=== PATIENT | male | born 1945 | race Caucasian/White ===

== ENCOUNTER 2016-08-05 05:50 | Inpatient (IN) | payer OTHER ==
[2016-08-05] MEDS ORDERED: LIDOCAINE 1% 5 ML SDV ONE (06:00)
[2016-08-05] MEDS ORDERED: ceFAZolin 2 GM/DEXTROSE 100 ML IV ONE (06:00)
[2016-08-05] MEDS ORDERED: CHLORHEXIDINE GLUC HIBICLENS 118 ML BTL TP ONE (06:00)
[2016-08-05] MEDS ORDERED: THROMBIN (RECOMBINANT) 5,000 UNIT VIAL TP ONE (06:27)
[2016-08-05] MEDS ORDERED: BUPIVACAINE/EPI 0.25% 30 ML SDV ONE (06:28)
[2016-08-05] MEDS ORDERED: BACITRACIN 50,000 UNITS/10 ML SYR IRR ONE ×2 (06:28→09:28)
[2016-08-05] MEDS ORDERED: MIDAZOLAM 2 MG/2 ML VIAL ONE (07:12)
[2016-08-05] MEDS ORDERED: REMIFENTANIL HCL 1 MG VIAL ONE ×3 (07:20→07:21)
[2016-08-05] MEDS ORDERED: fentaNYL 100 MCG/2 ML INJ ONE ×3 (07:21→13:34)
[2016-08-05] MEDS ORDERED: PROPOFOL/EMULSION 500 MG/50 ML BOTTLE IV ONE ×2 (07:21→10:20)
[2016-08-05] MEDS ORDERED: LIDOCAINE 2% 5 ML SDV ONE (07:22)
[2016-08-05] MEDS ORDERED: ROCURONIUM 50 MG/5 ML VIAL ONE ×2 (07:23→07:51)
[2016-08-05] MEDS ORDERED: AMINOCAPROIC ACID 5 GM/20 ML VIAL ONE (07:24)
[2016-08-05] MEDS ORDERED: PROPOFOL 200 MG/20 ML VIAL ONE (07:27)
[2016-08-05] MEDS ORDERED: DEXAMETHASONE 4 MG/ML VIAL ONE (07:51)
[2016-08-05] MEDS ORDERED: epHEDrine SULFATE 10 MG/ML SYR ONE (08:42)
[2016-08-05] MEDS ORDERED: PHENYLEPHRINE HCL 100 MCG/ML SYR ONE (08:42)
[2016-08-05] MEDS ORDERED: PHENYLEPHRINE 10 MG/ML SDV ONE ×2 (08:51)
[2016-08-05] MEDS ORDERED: HYDROmorphONE/DILAUDID 2 MG/ML INJ ONE (10:20)
[2016-08-05] MEDS ORDERED: SUGAMMADEX SODIUM 200 MG/2 ML VIAL IVP ONE (11:10)
[2016-08-05] MEDS ORDERED: ONDANSETRON DISINTEGRATING 4 MG TAB PO PRN (12:14)
[2016-08-05] MEDS ORDERED: POLYETHYLENE GLYCOL 3350 17 GM PKT PO PRN (12:14)
[2016-08-05] MEDS ORDERED: ONDANSETRON 4 MG/2 ML VIAL IVP PRN (12:14)
[2016-08-05] MEDS ORDERED: LACTULOSE 20 GM/30 ML UDCUP PO PRN (12:14)
[2016-08-05] MEDS ORDERED: MAGNESIUM HYDROXIDE 30 ML UDCUP PO PRN (12:14)
[2016-08-05] MEDS ORDERED: diphenhydrAMINE 25 MG CAP PO PRN (12:14)
[2016-08-05] MEDS ORDERED: ACETAMINOPHEN 325 MG TAB PO PRN (12:14)
[2016-08-05] MEDS ORDERED: DIAZEPAM 10 MG/2 ML SYR IVP PRN (12:14)
[2016-08-05] MEDS ORDERED: BISACODYL 10 MG SUPP PR PRN (12:14)
[2016-08-05] MEDS ORDERED: DIAZEPAM 5 MG TAB PO PRN (12:14)
[2016-08-05] MEDS ORDERED: HYDROmorphONE/DILAUDID 1 MG/ML SYR ONE (12:25)
[2016-08-05] MEDS ORDERED: DIAZEPAM 10 MG/2 ML SYR ONE (12:25)
--- NOTE | 2016-08-05 12:26 | POSTOPPROG ---
Post Op Note Date of Operation: 08/05/16 Surgeon: Nirali Lozoya Wet Machine Tender: Aminta Steven PA-C Anesthesia: GET(General Endotracheal) Pre-op Diagnosis: Lumbar stenosis Post-op Diagnosis: same Procedure: removal of hardware and extension of fusion L2/3 TLIF Inf/Abcess present in the surg proc area at time of surgery?: No Depth: Organ Space EBL: 250 Drains: Todd Ansari SOAP Progress Note Assessment/Plan: Assessment: Plan: S: patient waking up in PACU. Stable. Has expected back pain. O: NAD, VSS No droop PERRL BUE/BLE 5/5= Sensation intact to lt touch incision c/d/i- dressed Barry X1- to full suctions A: 70 yo male s/p removal hardware L3/4 and extension of fusion with L2/3 TLIF Plan: -Admit to med surg -Optimize pain management -Advance diet as tolerated -Barry X-1 -Postop x-rays pending in am -Brace when out of bed -DVT: TEDs, SCDs, Lovenox ok 24 hrs postop -Call neurosurg with any questions 08/05/16 12:23
--- NOTE | 2016-08-05 13:40 | GOP ---
DATE OF OPERATION: 08/05/2016 SURGEON: Bethany Lozoya MD MOVIE CRITIC: Aminta Steven, OUMOU PREOPERATIVE DIAGNOSIS: Very severe spinal stenosis at L2-3 above a prior L3 to S1 fusion, adjacent segment disease, axial low back pain, degenerative disk disease at L2-3. POSTOPERATIVE DIAGNOSIS: Very severe spinal stenosis at L2-3 above a prior L3 to S1 fusion, adjacen t segment disease, axial low back pain, degenerative disk disease at L2-3. PROCEDURE PERFORMED: Posterolateral and intervertebral arthrodesis with bilateral decompressions at L2-3 (79277), removal of posterior segmental instrumentation L3-L4 (31317), posterolateral and inte rvertebral arthrodesis, in this case, across a single interspace at L2-3 (23332), same incision bone graft harvest, microscope, fluoroscopy, spinal stereotaxy, placement of expandable non anchored int ervertebral device at L2-3 (81654). FINDINGS: ESTIMATED BLOOD LOSS: 300 cc INDICATIONS: The patient is a 70-year-old with a prior history of an L3 to S1 fusion with a good cl inical result who developed incapacitating, severe axial low back pain. The MRI demonstrated terrib le degenerative disease adjacent to the fusion with critical spinal stenosis. 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 He desired to have surgery. The risk of further adjacent segment disease, including the need for surgery at L1-2, was discussed; he knew this was a risk. The risk of screw and hardware malposition and malfunction was discussed, vascular injury, nerve injury, spinal fluid leak, and the possible need for additional re vision surgery, as well as the chance that he may fail to improve with the surgery. He accepted the se risks and wanted to proceed. DESCRIPTION OF PROCEDURE: The patient was taken to the operating room, placed in a supine position. General anesthesia was begun. He was flipped prone onto the Todd table. Care was taken to pad all points of contact. His right shoulder was postoperative, and we placed that arm tucked at the right side. The left arm, we put up above the head, as we normally do, although we did not stretch it all the way above the head; it was placed in a more physiologic position. We monitored SSEPs thr oughout the surgery. His back was sterilely prepped and draped in the usual fashion. The O-arm was introduced sterilely onto the field. Localizing x-rays were taken. We opened the prior incision, exposed the hardware at L3 and L4, and exposed the transverse process of L2. We denuded and removed the hypertrophic adjacent segment facet joint at L2-3. We then took several carbide drill bits and cut through the tiffany just at the lower border of the L3 tulip, and we then removed both screws. We performed an O-arm spin, and using frameless Stealth stereotaxy, we placed pedicle screws bilaterall y at L2 and performed another O-arm spin, and they were in excellent position. They all stimulated greater than 30 milliamps. We removed the hypertrophic bone around the prior tiffany above the L4 screw s. We had removed the L4 set screws as well. We then took a connecting in-line connector, and ensu red that it fit over both of the rostral portions of the old tiffany. We connected a new tiffany to the con nector and then connected this to the old tiffany on each side. We did not tighten any of these screws initially. We reduced the tiffany into the tulip at L2, and then distracted on each side at L2, working back and forth, increasing our distraction. We got good elevation of disk heights at L2-3 using th is technique, and we locked this in place. We then placed additional cap screws and the L4 screws, followed by appropriately torquing the connector set screws. We then removed all the soft tissue of the bone at L2-3, brought in the operating microscope, removed the inferior L2 spinous process, the rostral L3 spinous process. Under the scope, we opened the ligamentum flavum and performed a decom pression of the central spinal canal, and removed the rostral portion of the L3 lamina. An excellen t decompression was obtained. We swept the thecal sac medially from the left-hand side, and then re moved the disk and the cartilaginous endplates. There was really no additional disk material left i n the L2-3 disk, and this made this relatively straightforward. We placed some bone autograft, foll owed by BMP sponge, followed by the expandable Elevate cage at L2-3, and we expanded under fluorosco pic guidance. After it was fully expanded, we then compressed posteriorly at the L2 screws and got several millimeters of compression, increasing the segmental lordosis at this level. We decorticate d all remaining visible bone posterolaterally at L2-3 to conclude our arthrodesis and placed bony au tograft posterolaterally bilaterally as well as some BMP. We did not use all of the BMP dosage. We placed cap screws on all of the screws that remained, tightened them according to company specifica tion. We placed a subfascial drain, and then closed the incision in multiple layers using Vicryl palmer tures. Running PDS was placed in the skin itself. DICTATION ENDS HERE COMPLICATIONS: None. INSTRUMENTATION USED: [id number] Solera 475 system with connecting rods and a 7 x 28 mm Elevate cage at L2-3. We used 1.5 mg of BMP. COMPLICATIONS: None. /[id number]/MODL
[2016-08-05] MEDS: HYDROCODONE/APAP 10/325 TAB PO PRN (14:11)
[2016-08-05] MEDS: NS W/ 20 KCl/L 1,000 ML IV SCH (14:14)
[2016-08-05] MEDS: METHOCARBAMOL 750 MG TAB PO PRN (14:53)
[2016-08-05] MEDS: oxyCODONE IR 5 MG TAB PO PRN (15:11)
[2016-08-05] MEDS: CYCLOBENZAPRINE 10 MG TAB PO PRN (16:38)
[2016-08-05] MEDS ORDERED: HYDROmorphONE/DILAUDID 6 MG/30 ML PCA IV ONE (17:43)
[2016-08-05] MEDS ORDERED: NALOXONE HCL 0.4 MG/ML INJ IVP PRN (17:43)
[2016-08-05] MEDS ORDERED: HYDROmorphONE/DILAUDID 6 MG/30 ML PCA IV PRN (17:43)
[2016-08-05] MEDS ORDERED: SIMVASTATIN 20 MG PO SCH (18:00)
[2016-08-05] MEDS ORDERED: HYDROmorphONE/DILAUDID 1 MG/ML SYR IVP ONE (18:30)
[2016-08-05] MEDS: ATORVASTATIN CALCIUM 10 MG TAB PO SCH ×2 (18:31→18:36)
[2016-08-05] MEDS ORDERED: FAMOTIDINE 20 MG/NACL 50 ML IV SCH (21:00)
[2016-08-05] MEDS: TAMSULOSIN HCL 0.4 MG CAP PO SCH (22:19)
[2016-08-05] MEDS: SENNOSIDES/DOCUSATE SODIUM TAB PO SCH (22:19)
[2016-08-05] MEDS: FAMOTIDINE 20 MG TAB PO SCH (22:19)
[2016-08-06] MEDS: NS W/ 20 KCl/L 1,000 ML IV SCH (00:18)
[2016-08-06] MEDS ORDERED: NON-FORMULARY NEW DRUG (Zolpidem Tartrate [Ambien 10 Mg] 10 MG) PO PRN (07:57)
[2016-08-06] MEDS ORDERED: Zaleplon [Sonata] 10 MG PO PRN (07:57)
[2016-08-06] MEDS ORDERED: TESTOSTERONE IM 100 MG/ML SYRINGE IM SCH (08:00)
[2016-08-06] MEDS ORDERED: ZOLPIDEM TARTRATE 5 MG TAB PO PRN (08:00)
[2016-08-06] MEDS: SENNOSIDES/DOCUSATE SODIUM TAB PO SCH ×2 (08:19→21:14)
[2016-08-06] MEDS: METHOCARBAMOL 750 MG TAB PO PRN ×2 (08:19→21:14)
[2016-08-06] MEDS: oxyCODONE IR 5 MG TAB PO PRN ×3 (08:19→17:30)
[2016-08-06] MEDS: FAMOTIDINE 20 MG TAB PO SCH ×2 (08:19→21:14)
--- NOTE | 2016-08-06 08:27 | NEUSURGPN ---
Assessment/Plan: A: 70 yo male s/p removal hardware L3/4 and extension of fusion with L2/3 TLIF POD#1 Plan: -Admit to med surg -Optimize pain management, transition from BILL[employer] to oral oxycodone, robaxin -Advance diet as tolerated -Barry X-1 - remove today -Postop x-rays pending i -Brace when out of bed -DVT: TEDs, SCDs, Lovenox ok 24 hrs postop -Call neurosurg with any questions -Updated Dr Lozoya Subjective: Pt resting in bed, states he wants to get back to oral medications/home dose Objective: AAOx3 NAD VSS MAEx4 Motor 5/5 BLE Incision dressed cdi +LT Urinary Catheter in Place: No Catheter Insertion Date: 08/05/16 - Physician Discussed Patient with : [facility] Physical Exam - Vitals, I&O, Labs I and O 08/05/16 08/06/16 08/07/16 05:59 05:59 05:59 Intake Total 5700 550 Output Total 3335 Balance 2365 550 Weight 65.771 kg Intake: Oral (ml) 1150 IV Intake (ml) 4500 IV Infused (ml) 50 550 NS W/ 20 KCl/L 1,000 ml @ 500 75 mls/hr IV CONT PORSHA Rx #:[id number] ceFAZolin 1 GM/DEXTROSE 50 50 50 ml @ 200 mls/hr IV Q8H PORSHA Rx#:[id number] Output: Urine (ml) 2825 Catheter 1875 Urinal 950 Estimated Blood Loss (ml) 280 Wound Drainage (ml) 230 Left Back Todd Ansari 230 Other: Intake Quantity No Sufficient Number of Voids Catheter 2 Urinal 1 Post Void Residual Scan Volume (ml) Catheter 213 Vital Signs Temp Pulse Resp BP Pulse Ox 36.9 C 65 18 160/88 H 95 08/06/16 08:00 08/06/16 08:00 08/06/16 08:00 08/06/16 08:00 08/06/16 08:00 ICD10 Worksheet Patient Problems: Problems Problem Status Onset Lumbar degenerative disc disease Acute - ICD10 Problem Qualifiers (1) Lumbar degenerative disc disease
[2016-08-06] MEDS: RAMIPRIL 5 MG CAP PO SCH (10:04)
[2016-08-06] MEDS: ENOXAPARIN 40 MG/0.4 ML SYR SC SCH (13:07)
[2016-08-06] MEDS: CYCLOBENZAPRINE 10 MG TAB PO PRN (13:15)
[2016-08-06] MEDS: ATORVASTATIN CALCIUM 10 MG TAB PO SCH (17:30)
[2016-08-06] MEDS ORDERED: traZODone 50 MG TAB PO SCH (21:00)
[2016-08-06] MEDS: HYDROCODONE/APAP 10/325 TAB PO PRN (21:14)
[2016-08-06] MEDS: TAMSULOSIN HCL 0.4 MG CAP PO SCH (21:14)
[2016-08-06 23:10] VITALS: RESP 14
[2016-08-07] MEDS: METHOCARBAMOL 750 MG TAB PO PRN (05:54)
[2016-08-07] MEDS: HYDROCODONE/APAP 10/325 TAB PO PRN (05:54)
[2016-08-07 07:37] VITALS: BP 125/89; PULSE 93; TEMP 98.5; O2SAT 94
[2016-08-07] MEDS: FAMOTIDINE 20 MG TAB PO SCH (08:00)
[2016-08-07] MEDS: RAMIPRIL 5 MG CAP PO SCH (08:00)
[2016-08-07] MEDS: SENNOSIDES/DOCUSATE SODIUM TAB PO SCH (08:00)
[2016-08-07] MEDS: ENOXAPARIN 40 MG/0.4 ML SYR SC SCH (08:01)
--- NOTE | 2016-08-07 09:24 | SOAPPROG ---
SOAP Progress Note Assessment/Plan: Assessment: 70 yo M POD #2 L2/3 TLIF tied into L3-S1 fusion Plan: stable x-rays look great dc home today please call with neuro changes discussed with Dr rice 08/07/16 09:22 Subjective: back pain improving, no leg pain. Objective: Vital Signs Temp Pulse Resp BP Pulse Ox 36.9 C 93 14 125/89 H 94 08/07/16 07:35 08/07/16 07:35 08/07/16 07:35 08/07/16 08:00 08/07/16 07:35 08/06/16 08/07/16 08/08/16 05:59 05:59 05:59 Intake Total 5700 800 Output Total 3335 445 Balance 2365 355 AAOX4, +FC PERRL, EOMI, no facial droop 5/5 + light touch C/D/I ICD10 Worksheet Patient Problems: Problems Problem Status Onset Lumbar degenerative disc disease Acute
[2016-08-07] MEDS: oxyCODONE IR 5 MG TAB PO PRN (09:50)
[2016-08-07] MEDS: CYCLOBENZAPRINE 10 MG TAB PO PRN (09:50)
== END 2016-08-07 11:39 | disposition home or self-care (01) | DRG 460 ==
LOC: F3N 05:50
PROVIDERS: ADMIT Neurological Surgery; ATTEND Neurological Surgery
PROC: 8E0WXBZ Computer Assisted Procedure of Trunk Region (ICD-10-PCS; principal; 2016-08-05 07:30)
PROC: 0QP004Z Removal of Internal Fixation Device from Lumbar Vertebra, Open Approach (ICD-10-PCS; principal; 2016-08-05 07:30)
PROC: 00NY0ZZ Release Lumbar Spinal Cord, Open Approach (ICD-10-PCS; principal; 2016-08-05 07:30)
PROC: 3E0V0GB Introduction of Recombinant Bone Morphogenetic Protein into Bones, Open Approach (ICD-10-PCS; principal; 2016-08-05 07:30)
PROC: 4A10X4G Monitoring of Central Nervous Electrical Activity, Intraoperative, External Approach (ICD-10-PCS; principal; 2016-08-05 07:30)
PROC: 0SG00A1 (ICD-10-PCS; principal; 2016-08-05 07:30)
DX: M51.36 Other intervertebral disc degeneration, lumbar region (principal); M48.06 Spinal stenosis, lumbar region; Z98.1 Arthrodesis status; E78.5 Hyperlipidemia, unspecified; I10 Essential (primary) hypertension
CPT/HCPCS: 97161-GP; 97165-GO; C1713; G8978-GP-CI; G8979-GP-CI; G8980-GP-CI; G8987-GO-CI; G8988-GO-CI; G8989-GO-CI; J0690; J1071; J1100; J1170; J1650; J2250; J2370; J2405; J2704; J3010

== ENCOUNTER → 2016-10-04 | Outpatient (CLI) | payer OTHER | LOC: FIMAGING 08:39 | PROVIDERS: ATTEND Neurological Surgery | DX: M54.16 Radiculopathy, lumbar region (principal); Z98.1 Arthrodesis status ==

== ENCOUNTER → 2016-12-22 | Day surgery (SDC) | payer OTHER | END | disposition home or self-care (01) | LOC: FIMAGING 12:37 | PROVIDERS: ATTEND Radiology Diagnostic Radiology | PROC: 02HV33Z Insertion of Infusion Device into Superior Vena Cava, Percutaneous Approach (ICD-10-PCS; principal; 2016-12-22) | DX: M00.9 Pyogenic arthritis, unspecified (principal) | CPT/HCPCS: 36569; 77001; C1751 ==

== ENCOUNTER → 2017-01-15 | Outpatient (CLI) | payer OTHER | LOC: FIMAGING 06:50 | PROVIDERS: ATTEND Neurological Surgery | DX: Z09 Encounter for follow-up examination after completed treatment for conditions other than malignant neoplasm (principal); Z98.1 Arthrodesis status ==

== ENCOUNTER → 2017-06-15 | Outpatient (CLI) | payer OTHER | LOC: BHFA 10:45 | PROVIDERS: ATTEND Internal Medicine | DX: R01.1 Cardiac murmur, unspecified (principal) ==

== ENCOUNTER → 2017-07-26 | Outpatient (CLI) | payer OTHER, MEDICARE | LOC: FIMAGING 13:27 | PROVIDERS: ATTEND Physician Assistant | DX: Z09 Encounter for follow-up examination after completed treatment for conditions other than malignant neoplasm (principal); Z98.1 Arthrodesis status ==

== ENCOUNTER → 2017-07-30 | Outpatient (CLI) | payer OTHER, MEDICARE | LOC: FIMAGING 10:39 | PROVIDERS: ATTEND Physician Assistant | DX: M50.322 Other cervical disc degeneration at C5-C6 level (principal); M50.321 Other cervical disc degeneration at C4-C5 level; M53.82 Other specified dorsopathies, cervical region; M25.78 Osteophyte, vertebrae; M48.02 Spinal stenosis, cervical region; Q06.9 Congenital malformation of spinal cord, unspecified ==

== ENCOUNTER → 2018-07-25 | Outpatient (CLI) | payer OTHER, MEDICARE | LOC: FLAB 10:11 | PROVIDERS: ATTEND Physician Assistant | DX: M48.02 Spinal stenosis, cervical region (principal); M54.12 Radiculopathy, cervical region; Z98.1 Arthrodesis status; M43.17 Spondylolisthesis, lumbosacral region ==